=== PATIENT | female | born 2000 | race African-American/Black ===

== ENCOUNTER → 2021-04-28 | Emergency (ER) | payer OTHER ==
[~2021-04-28] VITALS: Ht 154.9 cm; Wt 43.1 kg
[~2021-04-28] MED LIST: IBUP-1955 PO; IBUPROFEN 600 MG TABLET PO ONE
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
--- NOTE | 2021-04-28 19:58 | NUR ---
URINE COLLECTED AND SENT
--- NOTE | 2021-04-28 20:59 | NUR ---
DISCHARGE INSTRUCTIONS GIVEN TO PT. PATIENT IN STABLE CONDITION
[2021-04-28 21:03] VITALS: BP 118/73
== END | disposition home or self-care (01) ==
LOC: ER 18:21
DX: M54.50 Low back pain, unspecified (principal); I10 Essential (primary) hypertension; E11.9 Type 2 diabetes mellitus without complications; Z86.718 Personal history of other venous thrombosis and embolism; V49.59XA Passenger injured in collision with other motor vehicles in traffic accident, initial encounter; Y93.89 Activity, other specified; Y92.413 State road as the place of occurrence of the external cause; Y99.8 Other external cause status
CPT/HCPCS: 72220-TC; 84703-TC